=== PATIENT | male | born 1965 | race Hispanic/Latino ===

== ENCOUNTER 2023-05-05 11:08 | Emergency (ER) | payer SELFPAY ==
[~2023-05-05] VITALS: Ht 157.5 cm; Wt 77.0 kg
[2023-05-05] VITALS (10 sets, daily range): BP systolic 139–159; BP diastolic 75–91
[~2023-05-05 11:08] MED LIST: AMOXICILLIN500 MG PO; CIPROFLOXACN500 MG PO; DILANTIN100 MG PO; GLIPIZIDE5 M2 PO; LOPID600 MG PO; METFORMIN500 MG PO; NO HOME MEDS; ZOFRAN ODT4 MG OR
[2023-05-05 11:52] LABS: BASO% 0.2 % (0-3); EOS% 0.2 % (0-8); IMMATURE GRANULOCYTES 0.2 % (0.0-5.0); LYMPH% 9.3 % (15-41); MEAN CORPUSCULAR HGB 32.3 pG CALC (26.0-32.0); MEAN CORPUSCULAR HGB CONC 35.1 g/dL CAL (32.0-36.0); MONO% 3.9 % (2-13); NEUT# 4.84 thou/uL (1.82-7.42); NEUT% 86.2 % (42-76); RED BLOOD COUNT 5.05 mill/uL (4.70-6.10); RED CELL DISTRI WIDTH 11.5 % (11.5-15.5)
[2023-05-05 11:57] LABS: HEMATOCRIT 46.5 % (39.0-50.0); HEMOGLOBIN 16.3 g/dl (14.0-18.0); MEAN CELL VOLUME 92.1 fL CALC (80.0-100.0)
[2023-05-05] MEDS ORDERED: KEPPRA750 M2 PO (12:03)
[2023-05-05 12:08] LABS: ALBUMIN 4.3 g/dL (3.2-5.0); ALKALINE PHOSPHATASE 143 u/l (38-126); ANION GAP 14 (6-22 (CALC)); BUN 10 mg/dL (9-20); BUN/CREATININE RATIO 22 (12-20 (CALC)); CARBON DIOXIDE 26 mmol/l (22-30); CHLORIDE 99 mmol/l (95-108); CREATININE 0.4 mg/dL (0.7-1.3); GFR FOR AFR.AMER. > 60 ML/MIN (>=60 (CALC)); GFR OTHER RACES > 60 ML/MIN (>=60 (CALC)); POTASSIUM 3.6 mmol/l (3.5-5.1); SODIUM 136 mmol/l (137-146); TOTAL PROTEIN 8.3 g/dL (6.3-8.2)
[2023-05-05 12:09] LABS: BILIRUBIN, TOTAL 0.9 mg/dL (0.2-1.3); SGOT/AST 123 u/l (17-59)
[2023-05-05] MEDS ORDERED: KEPPRA1000 MG PO (15:42)
== END 2023-05-05 13:23 | disposition home or self-care (01) | DRG 639 ==
LOC: ED 11:08
PROVIDERS: Family Medicine
DX: E11.649 Type 2 diabetes mellitus with hypoglycemia without coma (principal); R53.83 Other fatigue; I10 Essential (primary) hypertension; E78.5 Hyperlipidemia, unspecified; F10.90 Alcohol use, unspecified, uncomplicated; R25.1 Tremor, unspecified; Z79.84 Long term (current) use of oral hypoglycemic drugs; R56.9 Unspecified convulsions; E11.9 Type 2 diabetes mellitus without complications; F17.200 Nicotine dependence, unspecified, uncomplicated
CPT/HCPCS: J1953

== ENCOUNTER 2023-05-05 13:53 | Emergency (ER) | payer SELFPAY ==
[~2023-05-05] VITALS: Ht 157.5 cm; Wt 77.0 kg
[~2023-05-05 13:53] MED LIST changes: +KEPPRA750 M2 PO
[2023-05-05 14:02] VITALS: BP 166/99
[2023-05-05 14:15] LABS: BASO% 0.2 % (0-3); EOS% 0.6 % (0-8); HEMOGLOBIN 16.1 g/dl (14.0-18.0); IMMATURE GRANULOCYTES 0.2 % (0.0-5.0); LYMPH% 12.8 % (15-41); MEAN CELL VOLUME 92.6 fL CALC (80.0-100.0); MEAN CORPUSCULAR HGB 32.4 pG CALC (26.0-32.0); MONO% 5.4 % (2-13); NEUT# 5.35 thou/uL (1.82-7.42); NEUT% 80.8 % (42-76); RED BLOOD COUNT 4.97 mill/uL (4.70-6.10); RED CELL DISTRI WIDTH 11.6 % (11.5-15.5)
[2023-05-05 14:30] VITALS: BP 143/86
[2023-05-05 14:34] LABS: ALBUMIN 4.1 g/dL (3.2-5.0); ALKALINE PHOSPHATASE 153 u/l (38-126); ANION GAP 20 (6-22 (CALC)); BILIRUBIN, TOTAL 0.9 mg/dL (0.2-1.3); BUN 9 mg/dL (9-20); BUN/CREATININE RATIO 19 (12-20 (CALC)); CHLORIDE 105 mmol/l (95-108); CREATININE 0.5 mg/dL (0.7-1.3); GFR FOR AFR.AMER. > 60 ML/MIN (>=60 (CALC)); GFR OTHER RACES > 60 ML/MIN (>=60 (CALC)); POTASSIUM 3.3 mmol/l (3.5-5.1); SGOT/AST 120 u/l (17-59); SODIUM 139 mmol/l (137-146); TOTAL PROTEIN 7.7 g/dL (6.3-8.2)
[2023-05-05 14:38] LABS: CARBON DIOXIDE 17 mmol/l (22-30)
[2023-05-05 15:00] VITALS: BP 130/87
[2023-05-05 15:30] VITALS: BP 132/85
[2023-05-05] MEDS ORDERED: KEPPRA1000 MG PO (15:42)
[2023-05-05 16:00] VITALS: BP 127/83
[2023-05-05 16:30] VITALS: BP 135/91
== END 2023-05-05 16:36 | disposition home or self-care (01) | DRG 101 ==
LOC: ED 13:53
PROVIDERS: Family Medicine
DX: R56.9 Unspecified convulsions (principal); I10 Essential (primary) hypertension; E11.9 Type 2 diabetes mellitus without complications; F17.200 Nicotine dependence, unspecified, uncomplicated; Z79.84 Long term (current) use of oral hypoglycemic drugs
CPT/HCPCS: J1953